=== PATIENT | male | born 1985 | race Caucasian/White ===

== ENCOUNTER 2022-03-05 14:08 | Observation (INO) | payer OTHER ==
[~2022-03-05] VITALS: Ht 175.3 cm; Wt 61.2 kg
[2022-03-05 14:45] VITALS: BP 142/104
[2022-03-05] MEDS ORDERED: NACL 0.9% 2,000 ML IV ONE (14:55)
--- NOTE | 2022-03-05 15:15 | NUR ---
20G IV CATH PLACED L AC; LABS COLLECTED
[2022-03-05 15:22] LABS: BASOPHILS % (AUTO) 0.8 % (0.0-2.0); EOSINOPHILS # (AUTO) 0.2 K/uL (0-0.4); EOSINOPHILS % (AUTO) 5.8 % (0.0-4.0); HEMATOCRIT 37.8 % (36-52); HEMOGLOBIN 12.9 g/dL (12.0-18.0); LYMPHOCYTES # (AUTO) 0.9 K/uL (2.0-11.5); MEAN CORPUSCULAR HEMOGLOBIN 33 pg (27-31); MEAN CORPUSCULAR HGB CONC 34 g/dL (33-37); MEAN CORPUSCULAR VOLUME 97.1 fL (80-94); MONOCYTES # (AUTO) 0.2 K/uL (0.8-1.0); MONOCYTES % (AUTO) 5.9 % (1.7-9.3); NEUTROPHILS # (AUTO) 2.6 K/uL (1.8-7.7); NEUTROPHILS % (AUTO) 65.5 % (42.2-75.2); PLATELET COUNT (AUTO) 338 K/uL (140-450); RED BLOOD CELL COUNT(AUTO) 3.89 MIL/uL (4.20-6.10); RED CELL DISTRIBUTION WIDTH 12.9 % (11.6-13.7); WHITE BLOOD COUNT (AUTO) 3.9 K/uL (4.8-10.8)
[2022-03-05 15:34] LABS: APPEARANCE,URINE CLEAR (CLEAR); BILIRUBIN,URINE NEGATIVE (NEGATIVE); BLOOD, URINE NEGATIVE (NEGATIVE); COLOR,URINE YELLOW (YELLOW); LEUKOCYTE ESTERASE ,URINE NEGATIVE (NEGATIVE); NITRITE, URINE NEGATIVE (NEGATIVE); UGLUCOSE 3+ (NEGATIVE)
[2022-03-05 15:43] LABS: ALBUMIN 2.8 g/dL (3.4-5.0); ANION GAP 10.8 (8-16); CARBON DIOXIDE 26.4 mmol/L (21-32); CREATININE 0.8 mg/dL (0.6-1.3); POTASSIUM 4.2 mmol/L (3.5-5.1); TOTAL BILIRUBIN 0.3 mg/dL (0.0-1.0)
--- NOTE | 2022-03-05 15:57 | NUR ---
PT IN ROOM 3 . PT IN GOWN WITH BED SIDE RAILS UP X2
[2022-03-05 15:59] LABS: BARBITURATE, URINE NEGATIVE ng/ml (NEG <=200); BENZODIAZEPINE, URINE NEGATIVE ng/mL (NEG <=200); CANNABINOID, URINE NEGATIVE ng/mL (NEG <=50); COCAINE, URINE NEGATIVE ng/mL (NEG <=300); OPIATE, URINE NEGATIVE ng/mL (NEG <=2000); PHENCYCLIDINE SCREEN,URINE NEGATIVE ng/mL (NEG <=25)
--- NOTE | 2022-03-05 16:29 | NUR ---
SUGAR FREE FOOD GIVEN TO PT.
[2022-03-05] MEDS ORDERED: INSULIN REGULAR, HUMAN 100 UNIT/ML VIAL SUBQ ONE (16:30)
--- NOTE | 2022-03-05 16:43 | NUR ---
PT IS RESTING . RESP EVEN AND UNLABORED.
[2022-03-05] MEDS ORDERED: MAGNESIUM OXIDE 400 MG TAB PO PRN (17:20)
[2022-03-05] MEDS ORDERED: KCL 20 MEQ/WATER INJ PREMIX 200 ML IV PRN (17:20)
[2022-03-05] MEDS ORDERED: POTASSIUM CHLORIDE 10 MEQ TABER PO PRN (17:20)
[2022-03-05] MEDS ORDERED: ONDANSETRON 4 MG/2 ML VIAL IVP PRN (17:20)
[2022-03-05] MEDS ORDERED: MAG SULF 2000 MG/WATER PREMIX 50 ML IV PRN (17:20)
[2022-03-05] MEDS ORDERED: IBUPROFEN 400 MG TAB PO PRN (17:20)
[2022-03-05] MEDS ORDERED: ACETAMINOPHEN 325 MG TAB PO PRN (17:20)
[2022-03-05] MEDS: NACL 0.9% 1,000 ML IV SCH (18:25)
--- NOTE | 2022-03-05 18:26 | NUR ---
PT RESTING SIDE RAIL UP X1 BED AT LOWEST POSITION . RESP EVEN AND UNLABORED
--- NOTE | 2022-03-05 18:45 | NUR ---
Patient will be admitted to care of DR STEIN. Admited to [facility]. Will go to [id number]. Belongings list completed. Report to KRISTINE BURDICK.
--- NOTE | 2022-03-05 18:46 | NUR ---
PT ARRIVED ONTO UNIT VIA GURNEY. ACCOMPANIED BY ER NURSE. PT IS AWAKE, ALERT, AND COOPERATIVE. PT IS ALERT AND ORIENTED X4. RESPIRATIONS ARE EVEN AND UNLABORED ON ROOM AIR. NO SIGNS OF DISTRESS NOTED. PT IS CONTINENT OF BOWEL AND BLADDER, ABLE TO AMBULATE TO REST ROOM INDEPENDENTLY. SKIN IS WARM, DRY, AND INTACT. MRSA SCREEN DONE. VITALS TAKEN 120/79, HR 97, RR 18, TEMP 98.5, 02 SAT 96% ON ROOM AIR. ORIENTED PT TO ROOM, SMOKING POLICY, AND CALL LIGHT. ALL SAFETY MEASURES IN PLACE. CALL LIGHT WITHIN REACH. WILL ENDORSE PT TO SNUFF BOX FINISHER NURSE.
--- NOTE | 2022-03-05 19:21 | NUR ---
ENDORSED PT TO EYELET RIVETER NURSE FOR CONTINUITY OF CARE. PT IS STABLE.
--- NOTE | 2022-03-05 19:22 | NUR ---
RECEIVED REPORT FROM RADHA RUTHERFORD. PATIENT IS A NEW ADMISSION UPON ARRIVAL. PATIENT WAS ALERT AND ORIENT X 4. ABLE TO ANSWER ALL THE ADMISSION QUESTION INDEPENDENTLY. WAS IN BED WITH HEAD OF BED ELEVATED FOR COMFORT. PATIENT ON ROOM AIR S/SX OF PAIN/DISCOMFORT. PATIENT WAS OBSERVED BREATHING ON ROOM AIR EVENLY AND UNLABORED. SIDE RAILS X 2 FOR ADJUSTMENT. URINAL AT BEDSIDE. CALL LIGHT WITHIN REACH FOR ALL ASSISTED NEEDS. IV SITE CLEAN AND PATENT. [email or web address]
[2022-03-05 20:00] VITALS: BP 122/63
--- NOTE | 2022-03-05 23:25 | NUR ---
PATIENT WAS IN BED ASLEEP. NO NOTED S/SX OF PAIN/DISCOMFORT. PATIENT WAS OBSERVED BREATHING ON ROOM AIR EVENLY AND UNLABORED. SIDE RAILS X 2 FOR ADJUSTMENT. CALL LIGHT WITHIN REACH FOR ALL ASSISTED NEEDS. IV SITE CLEAN AND PATENT. [email or web address]
--- NOTE | 2022-03-06 03:05 | NUR ---
PATIENT WAS IN BED ASLEEP. NO NOTED S/SX OF PAIN/DISCOMFORT. PATIENT WAS OBSERVED BREATHING ON ROOM AIR EVENLY AND UNLABORED. SIDE RAILS X 2 FOR ADJUSTMENT. CALL LIGHT WITHIN REACH FOR ALL ASSISTED NEEDS. [email or web address]
[2022-03-06 04:00] VITALS: BP 136/88
[2022-03-06] MEDS: NACL 0.9% 1,000 ML IV SCH (05:12)
[2022-03-06] MEDS ORDERED: DEXTROSE 50% 50 ML SYR IVP PRN (06:20)
[2022-03-06] MEDS ORDERED: INSULIN LISPRO SLIDING SCALE 100 UNITS/ML VIAL SUBQ PRN (06:20)
--- NOTE | 2022-03-06 06:22 | NUR ---
PATIENT WAS CONFUSED, MUMMBLING HIS WORDS. REQUESTION LOTS OF WATER AND URINATING ALL NIGHT LONG. NURSING DID AN ACCUCHECK BECAUSE OF DIAGNOSIS AND BLOOD SUGAR WAS 565. [employer]OPTER MD WAS NOTIFIED. NURSING IS AWAITING A CALL BACK FOR ORDERS. NEW IV SITE IS ON THE RIGHT FOREARM WITH A 20 LORNA NEEDLE. [email or web address]
[2022-03-06 06:33] LABS: BASOPHILS % (AUTO) 0.6 % (0.0-2.0); EOSINOPHILS # (AUTO) 0.3 K/uL (0-0.4); EOSINOPHILS % (AUTO) 6.3 % (0.0-4.0); HEMOGLOBIN 13.2 g/dL (12.0-18.0); LYMPHOCYTES % (AUTO) 19.7 % (20.5-51.1); MEAN CORPUSCULAR HEMOGLOBIN 33 pg (27-31); MEAN CORPUSCULAR HGB CONC 34 g/dL (33-37); MEAN CORPUSCULAR VOLUME 97.2 fL (80-94); MONOCYTES # (AUTO) 0.4 K/uL (0.8-1.0); MONOCYTES % (AUTO) 8.8 % (1.7-9.3); NEUTROPHILS # (AUTO) 3.2 K/uL (1.8-7.7); NEUTROPHILS % (AUTO) 64.6 % (42.2-75.2); PLATELET COUNT (AUTO) 319 K/uL (140-450); RED BLOOD CELL COUNT(AUTO) 4.01 MIL/uL (4.20-6.10)
[2022-03-06] MEDS ORDERED: INSULIN LISPRO 100 UNITS/ML VIAL SUBQ SCH (06:44)
[2022-03-06 06:47] LABS: ANION GAP 10.1 (8-16); CARBON DIOXIDE 26.1 mmol/L (21-32); CREATININE 0.7 mg/dL (0.6-1.3); POTASSIUM 4.2 mmol/L (3.5-5.1)
--- NOTE | 2022-03-06 07:00 | NUR ---
LAB CRITICAL VALUE REPORT RECEIVED. DOCUMENTED AND DR. OCASIO AWARE. DR. OCASIO ORDERED 15 UNITS HUMALOG STAT. KRISTINE RUTHERFORD WILL CONTINUE TO MONITOR FOR S/SX OF HYPERGLYCEMIA. PATIENT STABLE AT THIS TIME.
--- NOTE | 2022-03-06 07:03 | NUR ---
DR OCASIO GAVE ORDERS ONCE ONLY TO GIVE 15 UNITS OF HUMALOG. WILL REPEAT IN 10 MINUTES. [email or web address]
--- NOTE | 2022-03-06 07:11 | NUR ---
PAGED DR STEIN PAGED AGAIN FOR CRITICAL LAB VALUE AND HI RESULT FOR BLOOD SUGAR. [email or web address]
--- NOTE | 2022-03-06 07:17 | NUR ---
SPOKE WITH DR STEIN AND HE WANT THE ACCUCHECK RECHECKED IN ONE HOUR AND IF VALUES ARE ELEVATED PASS 400 CALL BACK. [email or web address]
[2022-03-06] MEDS ORDERED: BLOOD GLUCOSE MONITORING 1 DEV DEV FS SCH (07:30)
--- NOTE | 2022-03-06 07:41 | NUR ---
ENDORSED TO [place] BURDICK PATIENT, PATIENT WAS STABLE AND ALERT DURING SHIFT REPORT. NURS IS AWARE OF FLOW UPS TO EARLIER HI BLOOD SUGAR AND TO CHECK IN ONE HOUR. [email or web address]
--- NOTE | 2022-03-06 08:28 | NUR ---
PATIENT HAS BEEN SCREENED AND CATEGORIZED HIGH NUTRITION RISK. PATIENT WILL BE SEEN WITHIN 1-2 DAYS OF ADMISSION. [address]
--- NOTE | 2022-03-06 08:31 | NUR ---
PAGED DR STEIN'S OFFICE - BLOOD SUGAR 241 - WAITING FOR A CALL BACK
[2022-03-06] MEDS ORDERED: ENOXAPARIN 40 MG/0.4 ML SYR SUBQ SCH (09:00)
--- NOTE | 2022-03-06 10:43 | NUR ---
PATIENT WOKE UP AND STARTED WALKING AROUND UNIT SCREAMING THAT HES LEAVING AMA, REMOVED PT'S IV, CONTACT DR STEIN, PT SIGNED AMA FORM AND LEFT.
--- NOTE | 2022-03-06 12:17 | NUR ---
DC PLANNING: THE PATIENT LEFT AMA BEFORE CM COULD SEE HIM.
== END 2022-03-06 10:35 | disposition left against medical advice (07) ==
LOC: MED 14:08 → MMU 17:22 → MTU 18:24
PROVIDERS: ADMIT Internal Medicine; ATTEND Internal Medicine
DX: E10.65 Type 1 diabetes mellitus with hyperglycemia (principal); Z20.822 Contact with and (suspected) exposure to COVID-19; E87.1 Hypo-osmolality and hyponatremia; E83.51 Hypocalcemia; E88.09 Other disorders of plasma-protein metabolism, not elsewhere classified; Z53.21 Procedure and treatment not carried out due to patient leaving prior to being seen by health care provider; Z79.899 Other long term (current) drug therapy
CPT/HCPCS: 36415; 71045; 80048; 80053; 80305; 81003; 82948; 83036; 84484; 85025; 87081; 87426; 93005; 96360; 96361; 96372; 99285; G0378; J1650; J1815; Q0092

== ENCOUNTER 2022-04-02 14:41 | Emergency (ER) | payer OTHER ==
[~2022-04-02] VITALS: Ht 175.3 cm; Wt 59.9 kg
[2022-04-02 14:51] VITALS: BP 130/85
--- NOTE | 2022-04-02 15:20 | NUR ---
36 Y/O MALE C/O NV X 4 WEEKS. REPORTS VOMITING 5X TODAY ALTHOUGH DENIES NAUSEA. REPORTS UNCONTROLLED DIABETES, HAS NOT HAD FOOD OR FLUIDS TODAY. BG TOO HIGH TOO READ. PATIENT ASSESSMENT INCONSISTENT, CONFUSED AT TIMES, PAUSES IN BETWEEN PHRASES NEEDING REORIENTATION. DENIES PAIN, SOB, CP. NO APPARENT S/S OF DESTRESS. RESPIRATIONS EVEN AND UNLABORED.
--- NOTE | 2022-04-02 16:05 | NUR ---
DR ARAIZA AT BEDSIDE FOR EVALUATION
[2022-04-02] MEDS ORDERED: NACL 0.9% 1,000 ML IV ONE (16:10)
[2022-04-02] MEDS ORDERED: ONDANSETRON 4 MG/2 ML VIAL IVP ONE (16:20)
--- NOTE | 2022-04-02 16:30 | NUR ---
lab at bedside
--- NOTE | 2022-04-02 16:52 | NUR ---
rt at bedside
[2022-04-02 17:01] LABS: BASOPHILS % (AUTO) 0.9 % (0.0-2.0); EOSINOPHILS # (AUTO) 0.2 K/uL (0-0.4); EOSINOPHILS % (AUTO) 4.6 % (0.0-4.0); HEMATOCRIT 39.6 % (36-52); HEMOGLOBIN 13.3 g/dL (12.0-18.0); LYMPHOCYTES % (AUTO) 21.5 % (20.5-51.1); MEAN CORPUSCULAR HEMOGLOBIN 33 pg (27-31); MEAN CORPUSCULAR HGB CONC 34 g/dL (33-37); MEAN CORPUSCULAR VOLUME 98.8 fL (80-94); MONOCYTES # (AUTO) 0.4 K/uL (0.8-1.0); MONOCYTES % (AUTO) 8.6 % (1.7-9.3); NEUTROPHILS # (AUTO) 2.9 K/uL (1.8-7.7); NEUTROPHILS % (AUTO) 64.4 % (42.2-75.2); PLATELET COUNT (AUTO) 287 K/uL (140-450); RED BLOOD CELL COUNT(AUTO) 4.01 MIL/uL (4.20-6.10); RED CELL DISTRIBUTION WIDTH 12.9 % (11.6-13.7); WHITE BLOOD COUNT (AUTO) 4.5 K/uL (4.8-10.8)
[2022-04-02 17:28] LABS: BARBITURATE, URINE NEGATIVE ng/ml (NEG <=200); BENZODIAZEPINE, URINE NEGATIVE ng/mL (NEG <=200); CANNABINOID, URINE NEGATIVE ng/mL (NEG <=50); COCAINE, URINE NEGATIVE ng/mL (NEG <=300); OPIATE, URINE NEGATIVE ng/mL (NEG <=2000); PHENCYCLIDINE SCREEN,URINE NEGATIVE ng/mL (NEG <=25)
--- NOTE | 2022-04-02 17:29 | NUR ---
PT SWABBED FOR COVID(MARY). HANDED TO ROUGH CARPENTER
[2022-04-02 17:36] LABS: ALBUMIN 3.4 g/dL (3.4-5.0); ANION GAP 13.1 (8-16); ASPARTATE AMINOTRANSFERASE 37 U/L (15-37); CARBON DIOXIDE 28.9 mmol/L (21-32); CHLORIDE 92 mmol/L (98-107); CREATININE 0.8 mg/dL (0.6-1.3); GFR ARICAN-AMERICAN 141 mL/min (>90); LIPASE 159 U/L (73-393); SODIUM SERUM 129 mmol/L (136-145); TOTAL BILIRUBIN 0.6 mg/dL (0.0-1.0); UREA NITROGEN, BLOOD 17 mg/dL (7-18)
[2022-04-02 17:39] LABS: GLUCOSE 742 mg/dL (74-106)
[2022-04-02] MEDS ORDERED: INSULIN LISPRO 100 UNITS/ML VIAL SUBQ ONE (18:45)
--- NOTE | 2022-04-02 18:46 | NUR ---
HUY HAYDEN OFFERED SREEKANTH MOSLEY AND TIFFANIE AND ACCEPTED
[2022-04-02] MEDS ORDERED: IMO2 PO (18:51)
[2022-04-02] MEDS ORDERED: ONDA-188 PO (18:51)
[2022-04-02] MEDS ORDERED: FAMO-90 PO (18:53)
[2022-04-02 19:10] VITALS: BP 124/79
--- NOTE | 2022-04-02 19:10 | NUR ---
Patient discharged with v/s stable. Written and verbal after care instructions given and explained. Patient alert, oriented and verbalized understanding of instructions. Ambulatory with steady gait. All questions addressed prior to discharge. ID band removed. Patient advised to follow up with PMD. Rx of Loperamide and Zofran given. Patient educated on indication of medication including possible reaction and side effects. Opportunity to ask questions provided and answered.
== END 2022-04-02 19:10 | disposition home or self-care (01) ==
LOC: MED 14:41
DX: E11.65 Type 2 diabetes mellitus with hyperglycemia (principal); Z20.822 Contact with and (suspected) exposure to COVID-19; F15.10 Other stimulant abuse, uncomplicated; R11.2 Nausea with vomiting, unspecified; Z79.4 Long term (current) use of insulin; Z79.899 Other long term (current) drug therapy
CPT/HCPCS: 36415; 80053; 80305; 81002; 82803; 83690; 83735; 85025; 87426; 93005; 96361; 96372; 96374; 99284; G0482; J1815; J2405; J7030

== ENCOUNTER 2022-06-26 22:20 | Emergency (ER) | payer OTHER ==
[~2022-06-26] VITALS: Ht 175.3 cm; Wt 59.9 kg
[~2022-06-26 22:20] MED LIST: FAMO-90 PO; IMO2 PO; ONDA-188 PO
--- NOTE | 2022-06-26 22:30 | NUR ---
Patient name called, no response.
--- NOTE | 2022-06-26 22:50 | NUR ---
Patient name called, no response.
--- NOTE | 2022-06-26 23:10 | NUR ---
Patient name called, no response.
--- NOTE | 2022-06-26 23:35 | NUR ---
Patient name called, patient answered.
--- NOTE | 2022-06-26 23:41 | NUR ---
Patint assessed. Patient states, "my diabetes is not under control." fingerstick BG result 495.
[2022-06-26 23:46] VITALS: BP 114/65
[2022-06-27 00:11] LABS: BASOPHILS % (AUTO) 0.6 % (0.0-2.0); EOSINOPHILS # (AUTO) 0.3 K/uL (0-0.4); HEMATOCRIT 38.6 % (36-52); HEMOGLOBIN 13.2 g/dL (12.0-18.0); LYMPHOCYTES # (AUTO) 1.6 K/uL (2.0-11.5); LYMPHOCYTES % (AUTO) 30.3 % (20.5-51.1); MEAN CORPUSCULAR HEMOGLOBIN 34 pg (27-31); MEAN CORPUSCULAR HGB CONC 34 g/dL (33-37); MEAN CORPUSCULAR VOLUME 99.4 fL (80-94); MONOCYTES # (AUTO) 0.5 K/uL (0.8-1.0); MONOCYTES % (AUTO) 8.9 % (1.7-9.3); NEUTROPHILS # (AUTO) 2.9 K/uL (1.8-7.7); NEUTROPHILS % (AUTO) 55.2 % (42.2-75.2); PLATELET COUNT (AUTO) 337 K/uL (140-450); RED BLOOD CELL COUNT(AUTO) 3.89 MIL/uL (4.20-6.10); RED CELL DISTRIBUTION WIDTH 12.9 % (11.6-13.7); WHITE BLOOD COUNT (AUTO) 5.2 K/uL (4.8-10.8)
[2022-06-27 00:32] LABS: ALBUMIN 2.9 g/dL (3.4-5.0); ANION GAP 11.2 (8-16); CARBON DIOXIDE 30.9 mmol/L (21-32); CREATININE 0.8 mg/dL (0.6-1.3); POTASSIUM 4.1 mmol/L (3.5-5.1)
[2022-06-27 01:23] LABS: TOTAL BILIRUBIN 0.4 mg/dL (0.0-1.0)
[2022-06-27] MEDS ORDERED: INSULIN REGULAR, HUMAN 100 UNIT/ML VIAL IVP ONE (01:25)
[2022-06-27] MEDS ORDERED: NACL 0.9% 1,000 ML IV ONE (01:25)
--- NOTE | 2022-06-27 01:27 | NUR ---
Patient ambulated to bed 11.
--- NOTE | 2022-06-27 01:33 | NUR ---
36 yo m bib self with c/c of high blood sugar. pt states he was checking his sugar around 10pm and found it was still elevated. pt states even after taking his insulin it remains high. pt reports 8/10 h/a. denies chest pain. hx:dm rx:insulin nka
--- NOTE | 2022-06-27 01:39 | NUR ---
iv established 18g right ac. ivf initiated as ordered.
--- NOTE | 2022-06-27 02:17 | NUR ---
Dr. Murguia examining patient.
[2022-06-27] MEDS ORDERED: ONDANSETRON 4 MG/2 ML VIAL IVP ONE (02:45)
[2022-06-27] MEDS ORDERED: ONDA8TAB87 PO (02:58)
[2022-06-27 03:40] VITALS: BP 128/77
== END 2022-06-27 03:41 | disposition home or self-care (01) ==
LOC: MED 22:20
DX: E11.65 Type 2 diabetes mellitus with hyperglycemia (principal); Z79.4 Long term (current) use of insulin; Z79.899 Other long term (current) drug therapy
CPT/HCPCS: 36415; 80053; 82948; 83690; 85025; 96361; 96374; 96375; 99284; J1815; J2405; J7030